=== PATIENT | female | born 1935 | race Caucasian/White ===

== ENCOUNTER 2022-07-06 13:59 | Emergency (ER) | payer OTHER ==
[~2022-07-06] VITALS: Ht 154.9 cm; Wt 72.6 kg
[2022-07-06 14:00] VITALS: BP_SYST 165
--- NOTE | 2022-07-06 14:00 | NUR ---
BROUGHT IN BY [facility], PLACED IN BED #5, TRIAGED AND REPORT GIVEN TO NURSE Dinh
--- NOTE | 2022-07-06 14:10 | NUR ---
RECEIVED IN NEFTALI TRAN FROM [facility] CP 6/10 PRESSURE LIKE INTERMITTENT. DENIES PAIN @ THIS TIME. DENIES DIZZINES, N,V,D,FEVER, CHILLS, SOB. HX HTN, DM, HLD. AAO X4. REPS EVEN AND NONLABORED. VSS. SR UP X2.
--- NOTE | 2022-07-06 14:25 | NUR ---
EKG AND LABS DRAWN
[2022-07-06 14:37] LABS: BASOPHILS # (AUTO) 0.1 K/uL (0.0-0.2); BASOPHILS % (AUTO) 0.7 % (0.0-2.0); EOSINOPHILS # (AUTO) 0.4 K/uL (0.0-0.4); EOSINOPHILS % (AUTO) 4.6 % (0.0-4.0); LYMPHOCYTES # (AUTO) 2.1 K/uL (1.0-5.5); LYMPHOCYTES % (AUTO) 22.4 % (20.5-51.5); MEAN CORPUSCULAR VOLUME 87 fL (79.0-98.0); MONOCYTES # (AUTO) 0.6 K/uL (0.0-1.0); MONOCYTES % (AUTO) 6.1 % (1.7-9.3); NEUTROPHILS # (AUTO) 6.3 K/uL (1.8-7.7); NEUTROPHILS % (AUTO) 66.2 % (40.0-70.0); PLATELET COUNT (AUTO) 195 K/uL (130-430); RED BLOOD CELL COUNT(AUTO) 4.28 MIL/uL (4.2-6.2); RED CELL DISTRIBUTION WIDTH 13.9 % (9.0-15.0); WHITE BLOOD COUNT (AUTO) 9.4 K/uL (4.8-10.8)
[2022-07-06 15:02] LABS: ANION GAP 10 (5-15); CALCIUM 9.3 mg/dL (8.4-11.0); CHLORIDE 101 mmol/L (98-107); CREATININE 1.11 mg/dL (0.55-1.30); GLUCOSE 211 mg/dL (70-99); SODIUM SERUM 139 mmol/L (136-145); UREA NITROGEN, BLOOD 28 mg/dL (8-21)
[2022-07-06 15:15] LABS: ALANINE AMINOTRANSFERASE 31 U/L (12-78); ALBUMIN 3.6 g/dL (3.4-4.8); ASPARTATE AMINOTRANSFERASE 35 U/L (10-37); TOTAL BILIRUBIN 0.4 mg/dL (0.0-1.0)
[2022-07-06 18:30] VITALS: BP_SYST 146
--- NOTE | 2022-07-06 18:32 | NUR ---
med cleared for d/c given aci and verbalized understanding. all questions answered. iv removed vss, nad. instructed to f/u with pcp or return to er for worsening of sx. aao x4. reps even and nonlabored. exited ed in w/c accompanied by daughter
== END 2022-07-06 18:32 | disposition home or self-care (01) ==
LOC: SED 13:59
DX: R07.89 Other chest pain (principal); I10 Essential (primary) hypertension; Z79.899 Other long term (current) drug therapy
CPT/HCPCS: 36415; 71045; 80053; 84484; 85025; 93005; 99285